=== PATIENT | female | born 1965 | race African-American/Black ===

== ENCOUNTER 2020-03-24 23:15 | Emergency (ER) | payer OTHER ==
[2020-03-24 23:34] VITALS: BP 168/95; PULSE 60; TEMP 98.5; BMI 25.7
[2020-03-25 01:30] LABS: ALBUMIN 3.9 g/dl (3.4-5.0); ALK PHOS 151 U/L (45-117); ANION GAP 8 MMOL/L (8-16); BASO % 0.8 % (0-2.0); BILIRUBIN,TOTAL 0.4 mg/dL (0.2-1); BLOOD UREA NITROGEN 15.8 mg/dL (7-18); CALCIUM 9.2 mg/dL (8.5-10.1); CHLORIDE 111 mmol/L (98-107); CO2 24 mmol/L (21-32); CREATININE 0.9 mg/dL (0.55-1.3); EOS % 0.7 % (0-4.5); GLUCOSE,RANDOM 105 mg/dL (74-106); HEMATOCRIT 35.8 % (32.4-45.2); HEMOGLOBIN 11.7 GM/dL (10.7-15.3); LYMPH % 38.7 % (8-40); MCH 29.1 pg (25.7-33.7); MCHC 32.7 g/dl (32.0-36.0); MEAN CELL VOLUME 88.9 fl (80-96); MONO % 10.7 % (3.8-10.2); NEUT % 49.1 % (42.8-82.8); PLATELET COUNT 184 K/MM3 (134-434); POTASSIUM 3.8 mmol/L (3.5-5.1); RBC 4.02 M/mm3 (3.60-5.2); RDW 13.9 % (11.6-15.6); SGOT/AST 19 U/L (15-37); SGPT/ALT 18 U/L (13-61); SODIUM 144 mmol/L (136-145); TOT PROT 7.2 g/dl (6.4-8.2); WHITE BLOOD COUNT 5.4 K/mm3 (4.0-10.0)
== END 2020-03-25 02:01 | disposition home or self-care (01) ==
LOC: FER 23:15 → MERGE 23:15 → FER 03-25 02:01
DX: R07.89 Other chest pain (principal)
CPT/HCPCS: 36415; 71045-TC-FY; 80053; 84484; 85025; 93005; 99285-25